=== PATIENT | female | born 1965 | race Caucasian/White ===

== ENCOUNTER 2017-03-26 18:20 | Emergency (ER) | payer OTHER | END 2017-03-26 19:50 | disposition home or self-care (01) | LOC: CED 18:20 → CFTX 18:20 | DX: S39.012A Strain of muscle, fascia and tendon of lower back, initial encounter (principal); M54.40 Lumbago with sciatica, unspecified side; F17.200 Nicotine dependence, unspecified, uncomplicated; W01.0XXA Fall on same level from slipping, tripping and stumbling without subsequent striking against object, initial encounter; Y93.39 Activity, other involving climbing, rappelling and jumping off; Y92.9 Unspecified place or not applicable | CPT/HCPCS: 96372; 99283; J1040; J1885 ==

== ENCOUNTER 2017-04-23 12:09 | Emergency (ER) | payer OTHER ==
--- NOTE | ~2017-04-23 | CR116 ---
[facility] A Service of [facility] RADIOLOGY TEXT RESULTS PATIENT: ANNIE HAMPTON LOCATION: [facility] : 69 UNIT #: [id number] AGE: [address]: Vy Katz APRN SEX: F ORDER DR: [id number] [facility] [address] [place], [place] [address] [id number] MR#: [id number] Acc #: [id number] NAME: ANNIE HAMPTON : 1965 SEX: F STUDY DATE/TIME: 04/23/2017 12:41 UNIT: [place] ROOM: STUDY DESCRIPTION: CR Finger 2 View Thumb Lt Attending Physician: Vy Katz A.P.R.N. Ordering Physician: [facility] Primary Care Physician: No Primary Care Physician MEDICAL IMAGING REPORT This report is preliminary unless electronic signature is present EXAM Three views of the left thumb. 04/23/2017 HISTORY Left thumb pain for 1 day, hurt thumb while trying to lock a slide lock. COMPARISON None. FINDINGS There is mild degenerative change of the first carpometacarpal joint with spurring at the trapezium. Mild degenerative narrowing of the first carpometacarpal joint. Benign-appearing bone island in the proximal aspect of the proximal phalanx of the first finger. No fracture or dislocation. IMPRESSION Mild degenerative change of the first carpometacarpal junction and benign appearing bone island within the proximal phalanx. No acute abnormality is seen within left thumb. Dictated by... Gail Rangel M.D. THIS IS AN ELECTRONICALLY VERIFIED REPORT Gail Rangel M.D. at 04/24/2017 8:36 AM SHANIKA/wendi TD: 04/23/2017 15:09 JOB #: [id number] [facility] A Service of [facility] RADIOLOGY TEXT RESULTS PATIENT: ANNIE HAMPTON LOCATION: [facility] : 69 UNIT #: [id number] AGE: [address]: Vy Katz APRN SEX: F ORDER DR: MEDICAL IMAGING REPORT Page 1 of 1 COPY
== END 2017-04-23 13:45 | disposition home or self-care (01) ==
LOC: CFTX 12:09 → CED 12:09 → CFTX 13:07
DX: S66.412A Strain of intrinsic muscle, fascia and tendon of left thumb at wrist and hand level, initial encounter (principal); F17.200 Nicotine dependence, unspecified, uncomplicated; W23.0XXA Caught, crushed, jammed, or pinched between moving objects, initial encounter; Y92.009 Unspecified place in unspecified non-institutional (private) residence as the place of occurrence of the external cause
CPT/HCPCS: 29280; 73140; 99283

== ENCOUNTER 2017-05-21 15:04 | Emergency (ER) | payer OTHER ==
[~2017-05-21] VITALS: Ht 167.6 cm; Wt 64.9 kg
[2017-05-21] MEDS ORDERED: ESTRADIOL1 MG PO (15:18)
[2017-05-21] MEDS ORDERED: ROBAXIN 750750 MG PO (15:18)
[2017-05-21] MEDS ORDERED: PROVERA PO (15:19)
== END 2017-05-21 16:31 | disposition home or self-care (01) ==
LOC: SED 15:04
DX: G89.29 Other chronic pain (principal); M54.41 Lumbago with sciatica, right side; Z90.49 Acquired absence of other specified parts of digestive tract; F17.210 Nicotine dependence, cigarettes, uncomplicated; Z79.899 Other long term (current) drug therapy
CPT/HCPCS: 96372; 99283; J1885; J2360